=== PATIENT | male | born 1940 | race Caucasian/White ===

== ENCOUNTER 2023-10-04 16:14 | Observation (INO) | payer MEDICARE, OTHER, SELFPAY ==
[2023-10-04] VITALS (25 sets, daily range): BP systolic 148–194; BP diastolic 53–96; PULSE 53–70; RESP 12–21; TEMP 36.6–37; O2SAT 90–97; BMI 38.2
--- NOTE | ~2023-10-04 | XR_ITS ---
XR chest 1V portable 10/04/2023 17:04 Indication: Bilateral lower extremity swelling Procedure: AP portable chest Comparison: No prior studies for comparison. Findings: Status post median sternotomy for CABG. Cardiomegaly. Mild interstitial edema. No significa nt effusion. No pneumothorax. No acute osseous abnormality. Impression: 1: Cardiomegaly with mild interstitial edema. Reviewed, dictated and finalized at location A. Impression: 1: Cardiomegaly with mild interstitial edema.
--- NOTE | ~2023-10-04 | US_ITS ---
EXAMINATION:US venous doppler LE BI INDICATION:Leg swelling. TECHNIQUE: Multiple grayscale, color flow and Doppler images of the right and left lower extremity de ep venous systems were obtained and reviewed. COMPARISON:No prior studies for comparison. FINDINGS: No evidence for deep venous thrombosis in the visualized lower extremity veins. Limited yue luation of the posterior tibial and peroneal veins bilaterally. There is venous reflux in the right l ower extremity involving the femoral, popliteal and gastrocnemius veins. IMPRESSION: 1: No lower extremity deep venous thrombosis. Limited study. Reviewed, dictated and finalized at location A.
--- NOTE | ~2023-10-04 | CT_ITS ---
EXAMINATION: CT BRAIN W/O DATE: 10/04/2023 17:57 INDICATION: Multiple falls. Head injury. Recent CVA. TECHNIQUE: Computed tomography (CT) of the head was performed without intravenous contrast. The dose- length product was 681.00 mGy-cm. Automated exposure control and iterative reconstruction technique w ere employed. COMPARISON: No prior studies for comparison. FINDINGS: There is generalized atrophy. There are chronic bilateral lacunar infarctions. There is chr onic right thalamic infarction. There are scattered moderate periventricular and subcortical white ma tter changes, most likely related to small vessel ischemic disease (microangiopathy). There is intrac ranial atherosclerosis. No ventriculomegaly or midline shift. Midline sagittal images demonstrate a normal corpus callosum, c raniovertebral junction and sella turcica. Basilar cisterns are patent. There is a mucous retention cyst of the left maxillary sinus. Mastoids are pneumatized. No depressed skull fracture. IMPRESSION: 1. No acute intracranial abnormality. 2: Chronic bilateral lacunar and right thalamic infarctions. 3: Chronic age-related findings. Reviewed, dictated and finalized at location A.
--- NOTE | 2023-10-04 16:18 | ECG_ITS ---
SEE SCANNED COPY FOR CONFIRMED REPORT MTDD
[2023-10-04 16:50] LABS: Basophils Percent Auto 0.8 % (0.2-1.2); Eosinophils Absolute Auto 0.2 K/mm3 (0-0.3); Eosinophils Percent Auto 3.6 % (0-4.4); Hematocrit 31.1 % (42.0-52.0); Hemoglobin 10.1 g/dL (14.0-18.0); Immature Granulocyte Absolute 0.01 K/mm3 (0.00-0.031); Immature Granulocyte Percent A 0.2 % (0-0.5); Lymphocytes Absolute Auto 0.94 K/mm3 (0.9-3.2); Lymphocytes Percent Auto 18.7 % (18.3-44.2); Mean Corpuscular HGB Conc 32.5 g/dl (32-36); Mean Corpuscular Hemoglobin 31.5 pg (26-34); Mean Corpuscular Volume 96.9 fl (80-100); Mean Platelet Volume 11.6 fl (7.4-10.4); Monocytes Absolute Auto 0.5 K/mm3 (0.1-0.6); Monocytes Percent Auto 9.1 % (2.6-8.5); Neutrophils Absolute Auto 3.4 K/mm3 (1.3-6.7); Neutrophils Percent Auto 67.6 % (45.5-73.1); Platelet Count Result 161 k/mm3 (150-375); Red Blood Count 3.21 M/mm3 (4.6-6.20); Red Cell Distribution Width 14.2 % (11.5-14.5)
[2023-10-04 17:05] LABS: INR 1.1; Partial Thromboplastin Time 31.7 Seconds (22.3-36.8); Prothrombin Time 14.6 Seconds (11.1-14.7)
[2023-10-04 17:10] LABS: Alanine Aminotransferase 64 U/L (6-50); Albumin Level 4.3 g/dL (3.5-5.1); Alkaline Phosphatase 101 U/L (38-126); Anion Gap 10 mmol/L (4-12); Aspartate Amino Transferase 54 U/L (17-59); Bilirubin,Total 0.8 mg/dL (0.2-1.3); Blood Urea Nitrogen 31 mg/dL (9-20); Calcium 9.3 mg/dL (8.4-10.2); Carbon Dioxide 20 mmol/L (22-30); Chloride 111 mmol/L (98-107); Estimated CRCL calculation 42 ml/min; Estimated Glomerular Filt Rate 49; Glucose 171 mg/dL (65-110); Potassium 4.1 mmol/L (3.4-5.0); Sodium 141 mmol/L (137-145)
[2023-10-04 17:20] LABS: NT Pro B Type Natriuretic Pept 2780 pg/mL (19.9-100); Troponin I < 0.012 ng/mL (0.000-0.034)
--- NOTE | 2023-10-04 17:46 | ED.GENADULT ---
HPI - General Adult General Chief complaint: Unspecified Stated complaint: BLE swelling, cough Time Seen by Provider: 10/04/23 16:52 Source: patient and family Mode of arrival: ambulatory Limitations: no limitations History of Present Illness HPI narrative: Patient is an 83-year-old male who presents the ED with report of lower extremity swelling. Patient has history of recent CVA with residual right-sided weakness, aphasia. He is now back at home with home health care. He reports having increased swelling in his lower extremities over the last few days. Home healthcare recommended he come here for further evaluation. Patient denies pain in his lower extremities. Denies significant shortness of breath. Denies chest pain. Denies known history of CHF. Is on Lasix 20 mg daily and has been taking this as directed. He also reports having a recent cough. Denies fevers. Home health care also reported that patient has had several falls in the last week. He believes he hit his head in 1 of the falls, denies headaches, dizziness, lightheadedness, new weakness. Related Data Home Medications Medication Instructions Recorded Confirmed amlodipine 10 mg tablet 10 mg PO DAILY 08/28/23 10/04/23 aspirin 81 mg tablet 81 mg PO DAILY 08/28/23 08/28/23 carvedilol 12.5 mg tablet 12.5 mg PO BID 08/28/23 10/04/23 cholecalciferol (vitamin D3) 50,000 unit BYMOUTH Q30D 08/28/23 10/04/23 clopidogrel 75 mg tablet 75 mg PO DAILY 08/28/23 10/04/23 furosemide 20 mg tablet 20 mg PO DAILY 08/28/23 10/04/23 glipizide 5 mg tablet 5 mg PO BID 08/28/23 10/04/23 hydralazine 100 mg tablet 100 mg PO Q8H 08/28/23 10/04/23 isosorbide mononitrate 30 mg 30 mg PO DAILY 08/28/23 10/04/23 tablet,extended release 24 hr metformin 1,000 mg tablet 1,000 mg PO BID 08/28/23 10/04/23 pantoprazole 40 mg tablet,delayed 40 mg PO QAM 08/28/23 10/04/23 release pioglitazone 15 mg tablet 15 mg PO DAILY 08/28/23 10/04/23 rosuvastatin 40 mg tablet 40 mg PO DAILY 08/28/23 10/04/23 vitamin E 268 mg (400 unit) capsule 268 mg PO DAILY 08/28/23 10/04/23 Allergies Allergy/AdvReac Type Severity Reaction Status Date / Time No Known Allergies Allergy Unverified 01/02/12 07:14 Review of Systems Review of Systems: CONSTITUTIONAL: Denies fever, chills, or sweats. CARDIOVASCULAR: See HPI. RESPIRATORY: See HPI. GASTROINTESTINAL: Denies abdominal pain, nausea, vomiting, or diarrhea. MUSCULOSKELETAL: Denies back pain, BLE pain. NEUROLOGIC: See HPI All systems reviewed & are unremarkable except as noted in HPI and below PMFSH Family History Family History Sibling Hypertension Father Hypertension Mother Hypertension Social History Social History Smoking packs per day: 0.2 Smoking cigarettes per day: 4.0 Smoking status: Former smoker Tobacco type: cigarettes Alcohol intake: current Drinks per week: 2 Substance use: never Do You Feel Safe in your Home?: Yes Lack of Transportation: No Lack of Food: Never True Current Housing: I Have Housing Concerned About Future Housing: No Difficulty Paying Gas/Electric Bills: No Difficulty Paying for Meds: No Currently Unemployed: No Education: High School Diploma/GED Difficulty w/ Childcare or Family Care: No Spiritual care concerns: No Exam Narrative: GENERAL: Elderly, obese with BMI of 39.6, non-toxic, in no acute distress. HEAD: Normocephalic, atraumatic. RESPIRATORY: Airway patent, respirations nonlabored. Clear to auscultation bilaterally, no rales, rhonchi, wheezing. CARDIOVASCULAR: Regular rate and rhythm without murmurs, rubs, or gallops. ABDOMINAL: Soft, no tenderness throughout abdomen, nondistended. Normoactive BS. MUSCULOSKELETAL: Moves all extremities. No gross deformities. 2+ edema to BLE, slightly worse on R. No significant calf tenderness. SKIN: Warm, dry,
[2023-10-04 18:02] LABS: Influenza A QL RT-PCR Negative (Negative); Influenza B QL RT-PCR Negative (Negative); RSV RNA, RT-PCR Negative (Negative); SARS-CoV-2 RNA PCR Negative (Negative)
[2023-10-04] MEDS: FUROSEMIDE INJ 40 MG/4 ML VIAL IV PUSH ×2 (18:07→22:10)
--- NOTE | 2023-10-04 20:18 | PC.NURSE ---
2015-RECEIVED ROOM ASSIGNMENT
--- NOTE | 2023-10-04 20:30 | PM.IMHP ---
H&P: HPI History of Present Illness Date/Time: 10/04/23 20:30 Chief Complaint: leg swelling Narrative: This is an 83-year-old male past medical history significant for hypertension, type 2 diabetes mellitus, obesity, dyslipidemia, congestive heart failure. Patient presented to the emergency room due to worsening of bilateral lower extremity edema, dry cough, shortness of breath. Patient denies chest pain, palpitations, no fevers ,no rigors, no chest ,no vomiting, no diarrhea. patient has a home health care nurse who advised him to come to the emergency room after noticing the swelling of bilateral lower extremities which prompted the patient to present to emergency room. Preliminary workup was significant for chemistry panel was significant for creatinine of 1.4, BUN 30, hemoglobin of 10 brain natriuretic peptide 2780, patient tested negative for influenza type a influenza type B COVID and RSV. XR chest 1V portable 10/04/2023 17:04 Indication: Bilateral lower extremity swelling Procedure: AP portable chest Comparison: No prior studies for comparison. Findings: Status post median sternotomy for CABG. Cardiomegaly. Mild interstitial edema. No significant effusion. No pneumothorax. No acute osseous abnormality. Impression: 1: Cardiomegaly with mild interstitial edema. EXAMINATION: CT BRAIN W/O DATE: 10/04/2023 17:57 INDICATION: Multiple falls. Head injury. Recent CVA. TECHNIQUE: Computed tomography (CT) of the head was performed without intravenous contrast. The dose-length product was 681.00 mGy-cm. Automated exposure control and iterative reconstruction technique were employed. COMPARISON: No prior studies for comparison. FINDINGS: There is generalized atrophy. There are chronic bilateral lacunar infarctions. There is chronic right thalamic infarction. There are scattered moderate periventricular and subcortical white matter changes, most likely related to small vessel ischemic disease (microangiopathy). There is intracranial atherosclerosis. No ventriculomegaly or midline shift. Midline sagittal images demonstrate a normal corpus callosum, craniovertebral junction and sella turcica. Basilar cisterns are patent. There is a mucous retention cyst of the left maxillary sinus. Mastoids are pneumatized. No depressed skull fracture. IMPRESSION: 1. No acute intracranial abnormality. 2: Chronic bilateral lacunar and right thalamic infarctions. 3: Chronic age-related findings. EXAMINATION:US venous doppler LE BI INDICATION:Leg swelling. TECHNIQUE: Multiple grayscale, color flow and Doppler images of the right and left lower extremity deep venous systems were obtained and reviewed. COMPARISON:No prior studies for comparison. FINDINGS: No evidence for deep venous thrombosis in the visualized lower extremity veins. Limited evaluation of the posterior tibial and peroneal veins bilaterally. There is venous reflux in the right lower extremity involving the femoral, popliteal and gastrocnemius veins. IMPRESSION: 1:? No lower extremity deep venous thrombosis. Limited study. Review of Systems Review of Systems: leg swelling Constitutional: Constitutional: Denies chills, Denies fever(s), Denies night sweats and Denies weakness Eyes: Eyes: Denies change in vision ENT: Denies dysphagia, Denies vertigo, Denies dizziness and Denies odynophagia Cardiovascular: Cardiovascular: Denies chest pain, Reports leg edema, Denies radiating jaw, neck or arm pain and Denies palpitations Respiratory: Respiratory: Reports cough, Denies excessive phlegm production and Reports dyspnea Gastrointestinal: Gastrointestinal: Denies abdominal pain, Denies dyspepsia, Denies heartburn, Denies nausea and Denies vomiting Genitourinary: Genitourinary: Denies dysuria Musculoskeletal: Musculoskeletal: Denies myalgias and Denies arthralgias Integumentary/Breasts: Skin/Breast: Denies rash Neurologic: Denies focal weakness and Denies
--- NOTE | 2023-10-04 21:21 | PC.NURSE ---
Call placed to both numbers listed for Carrie to verify medications, neither numbers in working order. Attempted to call son and goes straight to voicemail. Pt unable to remember any phone numbers. Meds verified with list from August and pharmacy info. Will continue to try to get in contact with son to confirm medications.
--- NOTE | 2023-10-04 21:31 | ADMGEN ---
This patient, Chico Rodas, was admitted to Medical Room 342-01 @2054. Patient/family oriented to hospital policies and general routines including ID bracelet, bed and alarms, visiting hours, pain management, procedures, bathroom and other care routines, personal items, smoking policy, room service/diet, and visiting hours. Information on how to activate the Rapid Response Team has been discussed. Patient/Family are encouraged to report perceived risks to care and to ask questions if they do not understand what they are told or what they should do. Report received from AMISHA Kirkpatrick in ER.
[2023-10-05] VITALS (11 sets, daily range): BP systolic 151–160; BP diastolic 59–87; PULSE 54–65; RESP 16–18; TEMP 36.1–36.7; O2SAT 94–95
[2023-10-05] MEDS: hydrALAZINE HCL 50 MG TABLET 100 MG PO ×3 (05:05→20:34)
--- NOTE | 2023-10-05 05:57 | PC.NURSE ---
Pt's , Carrie called for an update on pt's condition. Update given. Asked if she would be able to confirm pt's meds at this moment. stated she had a list that she can bring in later when she comes up to visit. Contact info updated.
--- NOTE | 2023-10-05 06:00 | ECHO_ITS ---
Patient Info Name: Chico Rodas Age: 83 years : 1940 Gender: Male Ht: 65 in Wt: 229 lbs BSA: 2.23 m2 HR: 78 bpm BP: 151 / 59 mmHg Technical Quality: Poor Exam Date: 10/05/2023 10:20 AM Exam Location: Echo Lab Exam Room: 342 Patient Status: Inpatient Admit Date: 10/04/2023 Staff Ordering Physician: Ana Rosa Fournier PA-C Dental Mechanic: Collette Chanel RDCS Attending Provider: Pan Russo MD Referring Physician: Irlanda PARRY; Exam Type: CA echo doppler color flow Study Info Indications - NEW ONSET BLE EDEMA Complete two-dimensional, color flow and Doppler transthoracic echocardiogram is performed with contrast to opacify the left ventricle and to improve the deliniation of the left ventricle endocardial borders. Contrast/Agitated Saline Contrast/Ag. Saline: Definity Amount: 3.00 ml Administered By: Collette Chanel [facility] Existing IV Access: Yes IV Access Condition: patent with no signs of infiltration Summary 1. Technically suboptimal study due to poor sonographic images. 2. Definity contrast administered improved wall motion interpretation. 3. Left ventricular chamber dimension is normal. 4. Left ventricular systolic function is normal, estimated at 65-70%. 5. The left ventricular diastolic function is abnormal. 6. E/e' 19 is elevated. 7. Left atrial chamber dimension is moderately enlarged. 8. Right atrial chamber dimension is moderately enlarged. 9. There is moderate aortic valve sclerosis. 10. There is mild tricuspid valve regurgitation. 11. No pulmonary hypertension, estimated pulmonary arterial systolic pressure is 35 mmHg. Left Ventricle E/e' 19 is elevated. Technically suboptimal study due to poor sonographic images. Definity contrast administered improved wall motion interpretation. Left ventricular chamber dimension is normal. Left ventricular systolic function is normal, estimated at 65-70%. The left ventricular diastolic function is abnormal. Right Ventricle Right ventricular chamber dimension is normal. Right ventricular systolic function is normal. Left Atria Left atrial chamber dimension is moderately enlarged. Right Atria Right atrial chamber dimension is moderately enlarged. Aortic Valve The aortic valve is trileaflet. There is moderate aortic valve sclerosis. There is no aortic valve stenosis. There is no aortic valve regurgitation. Pulmonic Valve There is no pulmonic regurgitation. Mitral Valve There is no mitral valve stenosis. There is no mitral valve regurgitation. Tricuspid Valve There is mild tricuspid valve regurgitation. No pulmonary hypertension, estimated pulmonary arterial systolic pressure is 35 mmHg. Pericardium/Pleural There is no pericardial effusion. Inferior Vena Cava Normal inferior vena cava with >50% collapse upon inspiration consistent with normal right atrial pressure, 5 mmHg. Aorta The aortic root size at the sinus of Valsalva is normal. Left Ventricular Outflow Tract Name Value Normal LVOT 2D LVOT Diameter 2.1 cm LVOT Doppler LVOT Peak Gradient 5 mmHg LVOT Mean Gradient 3 mmHg LVOT VTI
[2023-10-05] MEDS: FUROSEMIDE INJ 40 MG/4 ML VIAL IV PUSH ×2 (08:35→20:36)
[2023-10-05] MEDS: CLOPIDOGREL BISULFATE 75 MG TABLET PO (08:36)
[2023-10-05] MEDS: amLODIPine BESYLATE 5 MG TABLET 10 MG PO (08:36)
[2023-10-05] MEDS: PIOGLITAZONE HCL 15 MG TAB PO (08:36)
[2023-10-05] MEDS: carvediloL 12.5 MG TABLET PO ×2 (08:36→20:35)
[2023-10-05] MEDS: ROSUVASTATIN 10 MG TABLET 40 MG PO (08:36)
[2023-10-05] MEDS: ISOSORBIDE MONONITRATE 30 MG TAB.ER.24H PO (08:36)
[2023-10-05] MEDS: PANTOPRAZOLE 40 MG TABLET PO (08:36)
[2023-10-05] MEDS: LOSARTAN POTASSIUM 100 MG TABLET PO (08:36)
[2023-10-05] MEDS: PERFLUTREN LIPID MICROSPHERES 1.5 ML VIAL DILUTED TO 10 ML TOTAL VOLUME IV PUSH (10:40)
--- NOTE | 2023-10-05 13:00 | PM.IMPN ---
Progress Note: A&P Assessment and Plan (1) CHF (congestive heart failure): Qualifiers: Heart failure chronicity: acute Heart failure type: unspecified Qualified Code(s): I50.9 - Heart failure, unspecified Code(s): I50.9 - Heart failure, unspecified Status: Acute Assessment and Plan: Monitor vital signs, I&Os, BUN/creatinine, daily weights, neuro status and patient is a fall risk Monitor serum electrolytes, Keep serum Potassium>4 and serum Magnesium>2 and CBC Obtain an Echocardiogram Lasix 40 mg IV q12H Continue home cardiac medications. (2) Gait abnormality: Code(s): R26.9 - Unspecified abnormalities of gait and mobility Status: Acute Assessment and Plan: PT ordered for the patient. He has had frequent falls recently. (3) Type 2 diabetes mellitus with hyperglycemia: Code(s): E11.65 - Type 2 diabetes mellitus with hyperglycemia Status: Acute Assessment and Plan: Insulin Lispro sliding scale, Accu-checks qAc and HS and Hold oral hypoglycemics Initiate hypoglycemic precautions (4) Hypertension: Code(s): I10 - Essential (primary) hypertension Status: Acute Assessment and Plan: Continue home medications. (5) Swelling of both lower extremities: Code(s): M79.89 - Other specified soft tissue disorders Status: Acute Assessment and Plan: Likely due to CHF. Continue furosemide 40 mg BID Subjective Date/time seen: 10/05/23 13:00 Interval history: Patient's swelling is improved with IV Lasix. He still has +1 pitting edema. Will continue with IV Lasix b.i.d.. He did high shortness of breath, chest pain and cough. His kidney functions remain stable. Possible discharge tomorrow if he continues to improve. Echocardiogram pending. PT ordered due to frequent falls with the patient. Exam Narrative: GENERAL: Comfortable, no acute distress HENMT: moist mucous membranes EYES: EOM intact b/l NECK: no lymphadenopathy RESPIRATORY: clear to auscultation, no increased respiratory effort CARDIO: Regular rate and rhythm GI: soft, nontender, bowel sounds present SKIN/EXTREMITIES: no rashes, no redness or tenderness; +1 bilateral lower extremity pitting edema NEURO: PROM intact, answers questions appropriately, A&O x4 Objective Data Vital Signs Vital Signs: Vital Signs - 24 hr 10/04/23 16:16 10/04/23 16:33 10/04/23 16:45 Temperature 98.6 F Pulse Rate 58 L 57 L 56 L Respiratory Rate 16 16 16 Blood Pressure 151/55 H Pulse Oximetry 95 95 93 Oxygen Delivery 10/04/23 16:47 10/04/23 17:00 10/04/23 17:02 Temperature Pulse Rate 56 L 70 57 L Respiratory Rate 18 20 19 Blood Pressure 167/80 H 167/96 H Pulse Oximetry 93 94 96 Oxygen Delivery 10/04/23 17:15 10/04/23 17:17 10/04/23 17:18 Temperature Pulse Rate 56 L 53 L 55 L Respiratory Rate 17 13 14 Blood Pressure 152/66 H Pulse Oximetry 93 94 93 Oxygen Delivery 10/04/23 17:30 10/04/23 17:32 10/04/23 17:45 Temperature Pulse Rate 58 L 54 L 53 L Respiratory Rate 21 H 15 12 Blood Pressure 168/53 H Pulse Oximetry 93 93 96 Oxygen Delivery 10/04/23 17:47 10/04/23 18:00 10/04/23 18:08 Temperature Pulse Rate 57 L 56 L Respiratory Rate 18 16 Blood Pressure 148/58 H 174/66 H Pulse Oximetry 96 94 Oxygen Delivery 10/04/23 18:15 10/04/23 18:17 10/04/23 18:30 Temperature Pulse Rate 55 L 54 L 57 L Respiratory Rate 16 12 14 Blood Pressure 164/68 H Pulse Oximetry 94 96 90 Oxygen Delivery 10/04/23 18:32 10/04/23 18:45 10/04/23 18:47 Temperature Pulse Rate 55 L 57 L 58 L Respiratory Rate 15 16 15 Blood Pressure 162/67 H 194/78 H Pulse Oximetry 97 93 92 Oxygen Delivery 10/04/23 19:40 10/04/23 20:38 10/04/23 20:55 Temperature 97.9 F 97.8 F 98.6 F Pulse Rate 58 L 59 L 61 Respiratory Rate 18 20 18 Blood Pressure 174/75 H 164/80 H
--- NOTE | 2023-10-05 14:18 | IVDEFINITY ---
Prior to administration of IV Definity the patient was educated on the risks and benefits of the imaging enhancing agent including potential adverse side effects. The patient verbalized understanding. Allergies were verified. No exclusion criteria were identified and at least one of the following inclusion criteria were met: 1) physician request, 2) patient technically difficult to image (per the [place] [employer] Echocardi[employer] guidelines of two or more segments not discernable within the apical view), or 3) questionable left ventricular function. ?
[2023-10-05 17:32] LABS: Glucose Point of Care 160 mg/dl (65-105)
[2023-10-05] MEDS: INSULIN ASPART (*BKC) 100 UNITS/ML SUB-Q (20:34)
[2023-10-05 22:06] LABS: Glucose Point of Care 214 mg/dl (65-105)
[2023-10-06] VITALS: PULSE 53
[2023-10-06 04:00] VITALS: PULSE 57
[2023-10-06 04:10] VITALS: BP 157/67; PULSE 60; RESP 18; TEMP 36.4; O2SAT 96
[2023-10-06 05:33] LABS: Hematocrit 29.8 % (42.0-52.0); Hemoglobin 9.7 g/dL (14.0-18.0); Mean Corpuscular HGB Conc 32.6 g/dl (32-36); Mean Corpuscular Hemoglobin 31.2 pg (26-34); Mean Corpuscular Volume 95.8 fl (80-100); Mean Platelet Volume 10.8 fl (7.4-10.4); Platelet Count Result 145 k/mm3 (150-375); Red Blood Count 3.11 M/mm3 (4.6-6.20); Red Cell Distribution Width 14.1 % (11.5-14.5); White Blood Count 6.1 K/mm3 (4.5-10.0)
[2023-10-06 05:42] LABS: Anion Gap 5 mmol/L (4-12); Blood Urea Nitrogen 30 mg/dL (9-20); Carbon Dioxide 28 mmol/L (22-30); Chloride 105 mmol/L (98-107); Estimated CRCL calculation 36 ml/min; Estimated Glomerular Filt Rate 42; Glucose 106 mg/dL (65-110); Magnesium 1.6 mg/dL (1.6-2.3); Potassium 3.4 mmol/L (3.4-5.0); Sodium 138 mmol/L (137-145)
[2023-10-06] MEDS: hydrALAZINE HCL 50 MG TABLET 100 MG PO ×2 (06:11→13:00)
[2023-10-06 08:34] LABS: Glucose Point of Care 129 mg/dl (65-105)
[2023-10-06] MEDS: ISOSORBIDE MONONITRATE 30 MG TAB.ER.24H PO (09:22)
[2023-10-06] MEDS: LOSARTAN POTASSIUM 100 MG TABLET PO (09:23)
[2023-10-06] MEDS: CLOPIDOGREL BISULFATE 75 MG TABLET PO (09:23)
[2023-10-06] MEDS: ROSUVASTATIN 10 MG TABLET 40 MG PO (09:24)
[2023-10-06 09:25] VITALS: PULSE 64
[2023-10-06] MEDS: amLODIPine BESYLATE 5 MG TABLET 10 MG PO (09:25)
[2023-10-06] MEDS: PIOGLITAZONE HCL 15 MG TAB PO (09:25)
[2023-10-06] MEDS: carvediloL 12.5 MG TABLET PO (09:25)
[2023-10-06] MEDS: PANTOPRAZOLE 40 MG TABLET PO (09:25)
[2023-10-06] MEDS: FUROSEMIDE INJ 40 MG/4 ML VIAL IV PUSH (09:26)
[2023-10-06] MEDS: MAGNESIUM SULFATE 3GM/D5W100ML 3 GM/100 ML BAG IVPB (09:26)
[2023-10-06 12:49] LABS: Glucose Point of Care 272 mg/dl (65-105)
[2023-10-06] MEDS: INSULIN ASPART (*BKC) 100 UNITS/ML SUB-Q (12:56)
--- NOTE | 2023-10-06 13:12 | PM.DS ---
DS: Admitting Diagnosis Discharge Date 10/06/23 Admitting Diagnosis Bilateral lower extremity edema DS: Discharge Diagnosis Discharge Diagnosis (1) CHF (congestive heart failure): Qualifiers: Heart failure chronicity: acute Heart failure type: unspecified Qualified Code(s): I50.9 - Heart failure, unspecified Code(s): I50.9 - Heart failure, unspecified Status: Acute (2) Gait abnormality: Code(s): R26.9 - Unspecified abnormalities of gait and mobility Status: Acute (3) Type 2 diabetes mellitus with hyperglycemia: Code(s): E11.65 - Type 2 diabetes mellitus with hyperglycemia Status: Acute (4) Hypertension: Code(s): I10 - Essential (primary) hypertension Status: Acute (5) Swelling of both lower extremities: Code(s): M79.89 - Other specified soft tissue disorders Status: Acute DS: Summary Hospital Course Hospital Course: this is an 83-year-old male with past medical history of hypertension, type 2 diabetes, obesity, dyslipidemia and CHF presents to the ED due to worsening bilateral lower extremity edema, dry cough and shortness of breath. Pulmonary workup revealed a elevated creatinine 1.4, BUN of 30, BNP of 2780. Negative for influenza a, COVID and RSV. Patient admitted for CHF exacerbation. He was started on furosemide 40 mg IV b.i.d.. Chest x-ray showing mild interstitial edema. Patient also having multiple falls. Head CT with no acute intracranial findings. PT and OT ordered on the patient. Bilateral lower extremity Doppler negative for DVT. Patient improved with IV diuretics. Patient will be discharged home home health. Time Spent with Patient Time attestation: Total time spent providing and/or coordinating discharge services: Exam Narrative: GENERAL: Comfortable, no acute distress HENMT: moist mucous membranes EYES: EOM intact b/l NECK: no lymphadenopathy RESPIRATORY: clear to auscultation, no increased respiratory effort CARDIO: Regular rate and rhythm GI: soft, nontender, bowel sounds present SKIN/EXTREMITIES: no rashes, no redness or tenderness , no edema NEURO: PROM intact, answers questions appropriately, A&O x4 DS: Data Data Completed and Pending Labs on day of discharge: Labs from last 24 hours 10/06/23 10/06/23 10/06/23 12:43 08:30 05:19 WBC 6.1 RBC 3.11 L Hgb 9.7 L Hct 29.8 L MCV 95.8 MCH 31.2 MCHC 32.6 RDW 14.1 Plt Count 145 L MPV 10.8 H Sodium 138 Potassium 3.4 Chloride 105 Carbon Dioxide 28 Anion Gap 5 BUN 30 H Creatinine 1.60 H Estim Creat Clear Calc 36 Estimated GFR 42 L Glucose 106 POC Capillary Glucose 272 H 129 H Calcium 9.0 Magnesium 1.6 10/05/23 10/05/23 19:59 17:28 WBC RBC Hgb Hct MCV MCH MCHC RDW Plt Count MPV Sodium Potassium Chloride Carbon Dioxide Anion Gap BUN Creatinine Estim Creat Clear Calc Estimated GFR Glucose POC Capillary Glucose 214 H 160 H Calcium Magnesium Discharge Plan Discharge Attending physician on discharge: Haley King Consulting providers: Ana Rosa Fournier Discharging Clinician: Mayra Vazquez Patient Disposition: Home Health Service Activity: no preference Diet: diabetic Discharge Instructions: Per Care Coordination: [facility] ([phone]) will call to initiate first visit. Take medications as prescribed Maintain a cardiac diet, 2 g sodium, do not over hydrate Remain active Monitor urine output Daily weights, if you gain more than 3 lb within 1 day or 5 lb in 1 week notify your primary care provider If you develop chest pain, shortness breath, fever greater than 101, nausea, or vomiting notify a clinician or come to the emergency department Follow-up with primary care provider within 1-2 weeks Thank you for choosing [facility] for your [place]
[2023-10-06 13:15] VITALS: BMI 38.2
[2023-10-06 16:00] LABS: Hemoglobin A1C 7.9 % (<5.7)
== END 2023-10-06 15:48 | disposition home health service (06) ==
LOC: ANHED 19:12 → ANH3MED 10-05 00:05
PROVIDERS: Emergency Medicine; Internal Medicine Critical Care Medicine; Admitting Provider Internal Medicine; Emergency Provider Physician Assistant; PCP Physician Assistant; Visit Provider Student in an Organized Health Care Education/Training Program
DX: I11.0 Hypertensive heart disease with heart failure (principal); I50.9 Heart failure, unspecified; R29.6 Repeated falls; M79.89 Other specified soft tissue disorders; R05.9 Cough, unspecified; E11.65 Type 2 diabetes mellitus with hyperglycemia; E78.5 Hyperlipidemia, unspecified; Z20.822 Contact with and (suspected) exposure to COVID-19; I08.2 Rheumatic disorders of both aortic and tricuspid valves; E66.9 Obesity, unspecified; Z68.38 Body mass index [BMI] 38.0-38.9, adult; I69.351 Hemiplegia and hemiparesis following cerebral infarction affecting right dominant side; I69.320 Aphasia following cerebral infarction; Z87.891 Personal history of nicotine dependence; Z79.82 Long term (current) use of aspirin; Z79.02 Long term (current) use of antithrombotics/antiplatelets; Z79.84 Long term (current) use of oral hypoglycemic drugs; Z79.899 Other long term (current) drug therapy
CPT/HCPCS: 36415; 70450; 71045; 80048; 80053; 82948; 83036; 83735; 83880; 84484; 85025; 85027; 85610; 85730; 87637; 93005; 93970; 96374; 96375; 96376; 97161; 99285; A9270; C8929; G0378; J1815; J1940; J3475; Q9957

== ENCOUNTER 2023-10-16 11:19 | Outpatient (NON) | payer MEDICARE, OTHER, SELFPAY ==
[2023-10-16 12:59] LABS: Anion Gap 7 mmol/L (4-12); Blood Urea Nitrogen 33 mg/dL (9-20); Calcium 9.2 mg/dL (8.4-10.2); Carbon Dioxide 25 mmol/L (22-30); Chloride 106 mmol/L (98-107); Estimated Glomerular Filt Rate 34; Glucose 217 mg/dL (65-110); Potassium 4.1 mmol/L (3.4-5.0); Sodium 138 mmol/L (137-145)
== END 2023-10-16 11:20 | disposition home or self-care (01) ==
PROVIDERS: PCP Physician Assistant; Visit Provider Internal Medicine
DX: I11.0 Hypertensive heart disease with heart failure (principal); I50.9 Heart failure, unspecified; I65.01 Occlusion and stenosis of right vertebral artery; G93.40 Encephalopathy, unspecified; I69.251 Hemiplegia and hemiparesis following other nontraumatic intracranial hemorrhage affecting right dominant side
CPT/HCPCS: 80048